=== PATIENT | male | born 1985 | race Caucasian/White ===

== ENCOUNTER 2018-03-21 01:45 | Emergency (ER) | payer OTHER ==
[~2018-03-21] VITALS: Ht 171.4 cm; Wt 99.8 kg
[~2018-03-21 01:45] MED LIST: FLEXERIL10 MG PO; IBUPROFEN600 M1 PO; METHIMAZOLE10 MG PO; MOTRIN800 MG PO; NORCO 325 MG-51 TAB PO; TRAMADOL50 MG PO
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
[2018-03-21 04:05] VITALS: BP 120/76
== END 2018-03-21 04:06 ==
LOC: ERH 01:45
DX: T24.101A Burn of first degree of unspecified site of right lower limb, except ankle and foot, initial encounter (principal); S60.221A Contusion of right hand, initial encounter; S09.90XA Unspecified injury of head, initial encounter; X19.XXXA Contact with other heat and hot substances, initial encounter; V28.2XXA Unspecified motorcycle rider injured in noncollision transport accident in nontraffic accident, initial encounter; Y92.9 Unspecified place or not applicable
CPT/HCPCS: 73110-RT; 73130-RT